=== PATIENT | female | born 1980 | race Caucasian/White ===

== ENCOUNTER 2018-06-02 07:56 | Outpatient (CLI) | payer OTHER ==
[~2018-06-02 07:56] MED LIST: KETO10TA2 PO
== END 2018-06-02 08:03 | disposition home or self-care (01) ==
LOC: LAB 07:56
DX: C73 Malignant neoplasm of thyroid gland (principal); E89.0 Postprocedural hypothyroidism

== ENCOUNTER → 2018-06-03 09:05 | Outpatient (CLI) | payer OTHER | END | disposition home or self-care (01) | LOC: LAB 09:05 | DX: Z32.02 Encounter for pregnancy test, result negative (principal) ==

== ENCOUNTER 2018-06-04 14:15 | Outpatient (CLI) | payer OTHER | END 2018-06-04 14:39 | disposition home or self-care (01) | LOC: NUCLEAR 14:15 | DX: C73 Malignant neoplasm of thyroid gland (principal); E89.0 Postprocedural hypothyroidism | CPT/HCPCS: 79005; A9517 ==

== ENCOUNTER → 2018-06-08 | Outpatient (CLI) | payer OTHER | END | disposition home or self-care (01) | LOC: NUCLEAR 13:30 | DX: C73 Malignant neoplasm of thyroid gland (principal); E89.0 Postprocedural hypothyroidism ==

== ENCOUNTER 2019-04-06 09:28 | Emergency (ER) | payer OTHER ==
[~2019-04-06] VITALS: Ht 165.1 cm; Wt 90.7 kg
[2019-04-06] MEDS ORDERED: SYNTHROID125 MCG (09:38)
[2019-04-06] MEDS ORDERED: TRAMADOL HCL50 MG (09:38)
== END 2019-04-06 15:22 | disposition home or self-care (01) ==
LOC: ER 09:28
DX: M54.32 Sciatica, left side (principal)

== ENCOUNTER 2019-04-06 14:06 | Outpatient (CLI) | payer OTHER ==
[~2019-04-06 14:06] MED LIST changes: +SYNTHROID125 MCG; +TRAMADOL HCL50 MG
== END 2019-04-06 15:17 | disposition home or self-care (01) ==
LOC: MRI 14:06
DX: M54.42 Lumbago with sciatica, left side (principal)
CPT/HCPCS: 72148

== ENCOUNTER 2019-06-04 14:37 | Outpatient (CLI) | payer OTHER | END 2019-06-04 14:43 | disposition home or self-care (01) | LOC: NUCLEAR 14:37 | DX: C73 Malignant neoplasm of thyroid gland (principal) | CPT/HCPCS: 78018; 78020; A9528 ==

== ENCOUNTER 2020-03-02 10:01 | Outpatient (CLI) | payer OTHER | END 2020-03-02 10:11 | disposition home or self-care (01) | LOC: MRI 10:01 | PROVIDERS: ATTEND Orthopaedic Surgery Orthopaedic Surgery of the Spine | DX: M51.36 Other intervertebral disc degeneration, lumbar region (principal) | CPT/HCPCS: 72148 ==

== ENCOUNTER 2020-03-09 11:44 | Outpatient (CLI) | payer OTHER | END 2020-03-09 11:46 | disposition home or self-care (01) | LOC: RAD 11:44 | PROVIDERS: ATTEND Orthopaedic Surgery Orthopaedic Surgery of the Spine | DX: M51.36 Other intervertebral disc degeneration, lumbar region (principal) ==

== ENCOUNTER 2020-05-10 10:41 | Outpatient (CLI) | payer OTHER | END 2020-05-10 11:00 | disposition home or self-care (01) | LOC: MAMO-SONO 10:41 | PROVIDERS: ATTEND Obstetrics & Gynecology | DX: Z12.31 Encounter for screening mammogram for malignant neoplasm of breast (principal); N60.11 Diffuse cystic mastopathy of right breast; N60.12 Diffuse cystic mastopathy of left breast ==

== ENCOUNTER 2020-06-15 13:57 | Outpatient (CLI) | payer OTHER | END 2020-06-15 14:07 | disposition home or self-care (01) | LOC: SONOGRAMA 13:57 | PROVIDERS: ATTEND Internal Medicine Sports Medicine | DX: C73 Malignant neoplasm of thyroid gland (principal) ==

== ENCOUNTER 2021-05-22 11:20 | Outpatient (CLI) | payer OTHER | END 2021-05-22 11:30 | disposition home or self-care (01) | LOC: MAMO-SONO 11:20 | PROVIDERS: ATTEND Obstetrics & Gynecology Gynecology | DX: N64.89 Other specified disorders of breast (principal); Z12.31 Encounter for screening mammogram for malignant neoplasm of breast; N64.4 Mastodynia ==

== ENCOUNTER 2021-05-22 13:20 | Outpatient (CLI) | payer OTHER | END 2021-05-22 13:33 | disposition home or self-care (01) | LOC: SONOGRAMA 13:20 | PROVIDERS: ATTEND Internal Medicine Sports Medicine | DX: C73 Malignant neoplasm of thyroid gland (principal) ==

== ENCOUNTER 2021-09-04 11:12 | Outpatient (CLI) | payer OTHER | END 2021-09-04 11:27 | disposition home or self-care (01) | LOC: RAD 11:12 | PROVIDERS: ATTEND Orthopaedic Surgery Orthopaedic Surgery of the Spine | DX: M51.37 Other intervertebral disc degeneration, lumbosacral region (principal); M48.062 Spinal stenosis, lumbar region with neurogenic claudication ==

== ENCOUNTER 2021-09-11 11:14 | Outpatient (CLI) | payer OTHER | END 2021-09-11 11:15 | disposition home or self-care (01) | LOC: MRI 11:14 | PROVIDERS: ATTEND Orthopaedic Surgery Orthopaedic Surgery of the Spine | DX: M48.062 Spinal stenosis, lumbar region with neurogenic claudication (principal); M51.37 Other intervertebral disc degeneration, lumbosacral region | CPT/HCPCS: 72148 ==

== ENCOUNTER 2022-02-21 07:45 | Outpatient (CLI) | payer OTHER | END 2022-02-21 07:54 | disposition home or self-care (01) | LOC: SONOGRAMA 07:45 | PROVIDERS: ATTEND Internal Medicine Sports Medicine | DX: R94.5 Abnormal results of liver function studies (principal) ==

== ENCOUNTER 2022-05-24 11:29 | Outpatient (CLI) | payer OTHER | END 2022-05-24 11:45 | disposition home or self-care (01) | LOC: SONOGRAMA 11:29 | PROVIDERS: ATTEND Internal Medicine Sports Medicine | DX: C73 Malignant neoplasm of thyroid gland (principal) ==

== ENCOUNTER 2022-07-08 09:22 | Outpatient (CLI) | payer OTHER | END 2022-07-08 09:47 | disposition home or self-care (01) | LOC: MAMO-SONO 09:22 | PROVIDERS: ATTEND Obstetrics & Gynecology Gynecology | DX: Z12.31 Encounter for screening mammogram for malignant neoplasm of breast (principal); N64.4 Mastodynia ==

== ENCOUNTER 2023-07-14 08:35 | Outpatient (CLI) | payer OTHER | END 2023-07-14 08:56 | disposition home or self-care (01) | LOC: MAMO-SONO 08:35 | PROVIDERS: ATTEND Obstetrics & Gynecology Gynecology | DX: Z12.31 Encounter for screening mammogram for malignant neoplasm of breast (principal); N64.4 Mastodynia ==

== ENCOUNTER 2024-07-19 10:27 | Outpatient (CLI) | payer OTHER | END 2024-07-19 10:40 | disposition home or self-care (01) | LOC: MAMO-SONO 10:27 | PROVIDERS: ATTEND Obstetrics & Gynecology Gynecology | DX: N64.4 Mastodynia (principal); Z12.31 Encounter for screening mammogram for malignant neoplasm of breast ==

== ENCOUNTER 2025-01-04 10:34 | Outpatient (CLI) | payer OTHER | END 2025-01-04 10:44 | disposition home or self-care (01) | LOC: SONOGRAMA 10:34 | DX: R10.13 Epigastric pain (principal) ==

== ENCOUNTER 2025-01-28 07:56 | Outpatient (CLI) | payer OTHER | END 2025-01-28 08:02 | disposition home or self-care (01) | LOC: SONOGRAMA 07:56 | DX: K71.6 Toxic liver disease with hepatitis, not elsewhere classified (principal) ==